=== PATIENT | male | born 1970 | race Caucasian/White ===

== ENCOUNTER → 2016-10-28 | Outpatient (CLI) | payer BC ==
[~2016-10-28] MED LIST: COSOPT EYE DROPS5 ML OU; TIMOPTIC2.5 ML OP; TYLOX1 CAP 5/50 PO
--- NOTE | ~2016-10-28 | US115 ---
[facility] A Service of [facility] RADIOLOGY TEXT RESULTS PATIENT: KATELIN MARRERO LOCATION: [facility] : 72 UNIT #: [id number] AGE: [address]: Wilton Lobato MD SEX: M ORDER DR: [id number] [facility] [address] [place], [place] [address] [id number] O MR#: [id number] Acc #: [id number] NAME: KATELIN MARRERO : 1970 SEX: M STUDY DATE/TIME: 10/28/2016 14:55 UNIT: [facility] ROOM: STUDY DESCRIPTION: US Scrotum and Contents Attending Physician: Wilton Lobato M.D. Referring Physician: Wilton Lobato M.D. Ordering Physician: Wilton Lobato M.D. Primary Care Physician: Wilton Lobato M.D. MEDICAL IMAGING REPORT This report is preliminary unless electronic signature is present EXAM Ultrasound of scrotum and contents 10/28/2016 HISTORY Asymmetric swelling of right testicle, right hemiscrotum since 2008 gradually worsening over the past 2 years. FINDINGS Carson-scale images of the scrotum were obtained as well as Doppler waveform spectral analysis and color flow Doppler imaging. The right testicle measured 3.3 cm x 2.1 cm x 4 cm while the left testicle measured 3 cm x 2.1 cm x 4.5 cm. Both testes are homogeneous in echotexture and demonstrate no cystic or solid mass lesions. Color-flow Doppler images show normal blood flow to both testes. Each epididymis is normal. There is a large right hydrocele. Additionally, a prominent left varicocele is noted which increased in size with Valsalva. IMPRESSION 1. The testes are normal bilaterally. No testicular mass is seen. Color-flow Doppler images show normal blood flow to both testes. 2. Large right hydrocele. 3. Left varicocele. Dictated by... Juliano Burden M.D. THIS IS AN ELECTRONICALLY VERIFIED REPORT Juliano Burden M.D. at 10/29/2016 12:11 PM KRT/miguel TD: 10/29/2016 09:30 JOB #: [id number] [facility] A Service of [facility] RADIOLOGY TEXT RESULTS PATIENT: KATELIN MARRERO LOCATION: [facility] #: [id number] : 72 UNIT #: [id number] AGE: [address]: Wilton Lobato MD SEX: M ORDER DR: MEDICAL IMAGING REPORT Page 1 of 1 COPY
== END | disposition home or self-care (01) ==
LOC: CGUS 10-26 15:00
DX: Q55.9 Congenital malformation of male genital organ, unspecified (principal); N43.3 Hydrocele, unspecified; I86.1 Scrotal varices
CPT/HCPCS: 76870